=== PATIENT | female | born 1990 | race Caucasian/White ===

== ENCOUNTER 2022-03-28 15:20 | Emergency (ER) | payer MEDICAID ==
[~2022-03-28] VITALS: Ht 167.6 cm; Wt 65.0 kg
[2022-03-28 15:40] VITALS: BP 130/77
[2022-03-28] MEDS ORDERED: KETOROLAC 60MG/2ML VIAL IM ONE (15:45)
[2022-03-28] MEDS ORDERED: CYCLOBENZAPRINE 10MG TABLET PO ONE (15:45)
[2022-03-28] MEDS ORDERED: KETOROLAC 60MG/2ML VIAL IM NR (17:01)
[2022-03-28] MEDS ORDERED: CYCLOBENZAPRINE 10MG TABLET PO NR (17:30)
== END 2022-03-28 17:33 | disposition left against medical advice (07) ==
LOC: ER 15:20
DX: G44.209 Tension-type headache, unspecified, not intractable (principal); Z88.0 Allergy status to penicillin; Z98.51 Tubal ligation status
CPT/HCPCS: 99281; J1885